=== PATIENT | female | born 1985 | race Caucasian/White ===

== ENCOUNTER 2018-01-18 17:09 | Emergency (ER) | payer OTHER ==
[~2018-01-18] VITALS: Ht 160 cm; Wt 73.5 kg
[2018-01-18 17:35] VITALS: BP 114/74
--- NOTE | 2018-01-18 17:41 | NUR ---
URINE CUP PROVIDED TO PT FOR URINE SAMPLE; PT AWAKE, ALERT, APPROPRIATE; TO LOBBY AWAITING OPEN BED.
--- NOTE | 2018-01-18 19:27 | NUR ---
32F BIB SELF C/O LOW BACK PAIN WITH ABDOMINAL CRAMPING X 2 DAYS AND SORE THROAT X YESTERDAY. PT STATES 18 1/2 WEEKS , TAKING ANTIBIOTICS FOR UTI, WILL COMPLETE TODAY. G 5 P 3 M 1 A 1. PT STATES NO VAGINAL BLEEDING AT THIS TIME. HX: PT DENIES
--- NOTE | 2018-01-18 19:28 | NUR ---
Patient being evaluated by physician at bedside.
[2018-01-18 19:43] LABS: APPEARANCE,URINE SL CLOUDY (CLEAR); BILIRUBIN,URINE NEGATIVE (NEGATIVE); BLOOD, URINE NEGATIVE (NEGATIVE); COLOR,URINE YELLOW (YELLOW); LEUKOCYTE ESTERASE ,URINE 2+ (NEGATIVE); NITRITE, URINE NEGATIVE (NEGATIVE); UGLUCOSE NEGATIVE (NEGATIVE)
[2018-01-18 19:50] LABS: RBC,URINE 0-5 (RARE) /HPF (0-5); WBC,URINE 16-25 (MOD) /HPF (0-5)
--- NOTE | 2018-01-18 20:07 | NUR ---
INFLUENZA AND STREP BOTH COMPLETED, PLACED IN SPECIMEN CONTAINER
--- NOTE | 2018-01-18 20:12 | NUR ---
LAB CALLED FOR SPECIMEN P/U
[2018-01-18 20:23] VITALS: BP 119/62
--- NOTE | 2018-01-18 20:23 | NUR ---
Patient discharged with v/s stable. Written and verbal after care instructions given and explained. Patient alert, oriented and verbalized understanding of instructions. Ambulatory with steady gait. All questions addressed prior to discharge. ID band removed. Patient advised to follow up with PMD. Rx of AMOX 875MG, MOTRIN 800MG given. Patient educated on indication of medication including possible reaction and side effects. Opportunity to ask questions provided and answered.
== END 2018-01-18 20:23 | disposition home or self-care (01) ==
LOC: MED 17:09
DX: J03.90 Acute tonsillitis, unspecified (principal)
CPT/HCPCS: 36415; 81001; 87081; 87086; 87804; 99284

== ENCOUNTER 2018-03-06 19:30 | Observation (INO) | payer OTHER ==
[~2018-03-06] VITALS: Ht 162.6 cm; Wt 74.8 kg
[2018-03-06 20:54] VITALS: BP 116/59
== END 2018-03-06 21:13 | disposition home or self-care (01) ==
LOC: MLD 19:30
PROVIDERS: ADMIT Obstetrics & Gynecology; ATTEND Obstetrics & Gynecology
DX: O26.892 Other specified pregnancy related conditions, second trimester (principal); R10.30 Lower abdominal pain, unspecified; Z3A.26 26 weeks gestation of pregnancy
CPT/HCPCS: G0378

== ENCOUNTER 2021-06-01 17:32 | Emergency (ER) | payer BC, MEDICAID, OTHER ==
[~2021-06-01] VITALS: Ht 162.6 cm; Wt 86.2 kg
[2021-06-01 17:39] VITALS: BP 130/85
[2021-06-01] MEDS ORDERED: LIDOCAINE MPF 1% 10 MG/ML VIAL INJ ONE (17:50)
[2021-06-01] MEDS ORDERED: CLINDAMYCIN 600 MG/4 ML VIAL IM ONE (17:50)
--- NOTE | 2021-06-01 18:14 | NUR ---
35 YEAR OLD FEMALE COMPLAINS OF RIGHT SHOULDER ABSCESS X 3 DAYS.PT STATES THAT SHE HAS TRIED OPENING ABSCESS WITH FAIL. SITE IS REDDENED WITH SWELLING ON RIGHT SHOULDER. PT AOX4, BREATHING EVEN AND UNLABORED, SKIN WARM AND DRY. BED IN LOWEST POSITION, LOCKED, BED RAIL UPX1. PMH - DENIES ALLERGIES - NKA
--- NOTE | 2021-06-01 19:12 | NUR ---
REPORT GIVEN TO AKIL MARLEY, TRANSFER OF CARE AT THIS TIME
--- NOTE | 2021-06-01 19:13 | NUR ---
REPORT RECEIVED FROM DONELL TAMAYO FOR CONTINUATION OF CARE AT THIS TIME.
--- NOTE | 2021-06-01 19:21 | NUR ---
PATIENT NOT IN ROOM AT THIS TIME, PER EMT, PATIENT WENT TO GET SOMETHING FROM HER CAR.
[2021-06-01] MEDS ORDERED: METF-938 PO (19:42)
[2021-06-01] MEDS ORDERED: DIPH25TA53 PO (19:42)
[2021-06-01] MEDS ORDERED: SULF-58 PO (19:42)
[2021-06-01] MEDS ORDERED: CEPH-588 PO (19:42)
--- NOTE | 2021-06-01 20:08 | NUR ---
ERMD AT BEDSIDE FOR PATIENT PROCEDURE.
--- NOTE | 2021-06-01 20:20 | NUR ---
SWAB SAMPLE OF ABCESS COLLECTED AND WALKED TO LAB, HANDED TO REDUCTION FURNACE OPERATOR HELPER.
--- NOTE | 2021-06-01 20:32 | NUR ---
PATIENT SITTING IN BED ON HER PHONE, BED LOCKED IN LOWEST POSITION, X1 SIDERAIL UP. PATIENT REPORTS SLIGHT BURNING SENSATION TO ABCESS SITES. BREATHING EVEN AND UNLABORED. NAD NOTED, WILL CONTINUE TO MONITOR.
[2021-06-01] MEDS ORDERED: CEPH500C16 PO (20:48)
[2021-06-01] MEDS ORDERED: IBUP-2213 PO (20:48)
[2021-06-01 21:10] VITALS: BP 127/92
--- NOTE | 2021-06-01 21:10 | NUR ---
Patient discharged with v/s stable. Written and verbal after care instructions given and explained. Patient alert, oriented and verbalized understanding of instructions. Ambulatory with steady gait. All questions addressed prior to discharge. ID band removed. Patient advised to follow up with PMD. Rx of keflex, ibuprofen given. Patient educated on indication of medication including possible reaction and side effects. Opportunity to ask questions provided and answered.
== END 2021-06-01 21:10 | disposition home or self-care (01) ==
LOC: MED 17:32
DX: L02.413 Cutaneous abscess of right upper limb (principal)
CPT/HCPCS: 10060; 81025; 87070; 87075; 96372; 99284; J2001; J3490